=== PATIENT | male | born 1970 | race Caucasian/White ===

== ENCOUNTER 2025-06-03 07:43 | Emergency (ER) | payer BC ==
[2025-06-03] MEDS: Ondansetron 4 MG/2 ML SDV IVPUSH ONE (08:05)
[2025-06-03] MEDS: Sodium Chloride 0.9% 10 ML Syringe FLUSH PRN (08:10)
[2025-06-03] MEDS: Ondansetron 4 MG/2 ML SDV ONE (08:12)
[2025-06-03 08:16] LABS: BASOPHILS ABSOLUTE AUTO 0.1 K/mm3 (0.0-0.2); BASOPHILS PERCENT AUTO 1.0 % (0.0-1.0); EOSINOPHILS ABSOLUTE AUTO 0.2 K/mm3 (0.0-0.4); EOSINOPHILS PERCENT AUTO 2.2 % (0.0-6.0); IMMATURE GRAN ABSOLUTE AUTO 0.07 K/mm3 (0.00-0.05); IMMATURE GRAN PERCENT AUTO 0.8 % (0.0-0.4); LYMPHOCYTES ABSOLUTE AUTO 1.2 K/mm3 (1.0-4.8); LYMPHOCYTES PERCENT AUTO 13.3 % (24.0-44.0); MEAN PLATELET VOLUME 9.3 fl (9.4-12.4); MONOCYTES ABSOLUTE AUTO 0.7 K/mm3 (0.0-0.8); MONOCYTES PERCENT AUTO 7.3 % (0.0-8.0); NEUTROPHILS ABSOLUTE AUTO 6.9 K/mm3 (1.8-7.7); NEUTROPHILS PERCENT AUTO 75.4 % (41.0-71.0); NRBC ABSOLUTE 0.00 (0.00-0.02); NRBC PERCENT 0.0 % (0.0-0.2); PLATELET COUNT,PLT 238 K/mm3 (150-400); RED BLOOD CELL COUNT 5.51 M/mm3 (4.52-5.90); WHITE BLOOD CELL COUNT,WBC 9.08 K/mm3 (3.9-11.3)
[2025-06-03 08:41] LABS: LACTIC ACID 2.0 mmol/L (0.4-2.0)
[2025-06-03] MEDS: Iopamidol 755 Mg/ML 100 ML Bottle IVPUSH ONE (09:02)
[2025-06-03 09:04] LABS: A/G RATIO 1.1 (1-2); ALANINE AMINOTRANSFERASE,ALT 48.0 U/L (16-63); ASPARTATE AMNIOTRANSFERASE,AST 31.0 U/L (15-37); BILIRUBIN TOTAL 0.3 mg/dL (0.2-1.0); BLOOD UREA NITROGEN,BUN 18.0 mg/dL (7-18); CARBON DIOXIDE,CO2 28.0 mEq/L (21-32); CHLORIDE,CL 100.0 mEq/L (98-107); CREATINE KINASE,CK 467.0 U/L (39-308); CREATININE 1.5 mg/dL (0.7-1.3); EST CRCL DRUG DOSING (CG) 64.69 mL/min; ESTIMATED GFR 55.0 mL/min (>60); GLUCOSE RANDOM 149.0 mg/dL (70-99); POTASSIUM,K 3.9 mEq/L (3.5-5.1); PROTEIN TOTAL,TP 8.5 g/dl (6.4-8.2); SODIUM,NA 139.0 mEq/L (136-145); TROPONIN I HIGH SENSITIVITY 8.0 pg/mL (<=76)
[2025-06-03 09:06] LABS: ETHANOL BLOOD MEDICAL 0.0 gm% (0.00)
[2025-06-03 09:47] LABS: APPEARANCE,URINE CLEAR (Clear); GLUCOSE,URINE NEGATIVE (Negative); OCCULT BLOOD,URINE NEGATIVE (Negative)
[2025-06-03 09:54] LABS: BUPRENORPHINE SCREEN,URINE NEGATIVE (CUTOFF=10); METHADONE SCREEN, URINE NEGATIVE (CUT0FF=200); METHAMPHETAMINES SCREEN, URINE NEGATIVE (CUTOFF=500); OXYCODONE SCREEN,URINE NEGATIVE (CUT0FF=100); THC SCREEN,URINE 20 NG/ML NEGATIVE (CUTOFF=50)
[2025-06-03 09:57] LABS: AMPHETAMINES SCREEN, URINE NEGATIVE (CUTOFF=500)
[2025-06-03] MEDS ORDERED: Alum Hydrox/Mag Hydrox/Simeth 30 ML, Lidocaine 2% 15 ML PO ONE (13:13)
[2025-06-03] MEDS: Alum Hydrox/Mag Hydrox/Simeth 30 ML, Lidocaine 2% 15 ML PO ONE (13:20)
== END 2025-06-03 13:33 | disposition home or self-care (01) ==
LOC: JD.ED 07:43
DX: R10.13 Epigastric pain (principal); R11.2 Nausea with vomiting, unspecified; M54.9 Dorsalgia, unspecified; Z79.890 Hormone replacement therapy; Z79.899 Other long term (current) drug therapy
CPT/HCPCS: 36415; 71275; 74177; 80053; 80306; 80307; 81003; 82550; 83605; 83690; 83735; 84484; 85025; 87040; 93005; 96361; 96374; 96375; 99284; A9270; J1171; J2270; J2405; J3490; J7030; Q9967; 93010

== ENCOUNTER 2025-08-25 08:23 | Emergency (ER) | payer BC ==
[2025-08-25] MEDS: fentaNYL 100 MCG/2 ML SDV IVPUSH ONE (10:26)
[2025-08-25] MEDS ORDERED: Ketorolac 30 MG/ML SDV IVPUSH ONE (11:54)
[2025-08-25] MEDS: Ketorolac 15 MG/ML SDV IVPUSH ONE (12:15)
== END 2025-08-25 15:11 | disposition home or self-care (01) ==
LOC: JD.ED 08:23
DX: S43.401A Unspecified sprain of right shoulder joint, initial encounter (principal); E03.9 Hypothyroidism, unspecified; Z79.899 Other long term (current) drug therapy; Z79.890 Hormone replacement therapy; W18.30XA Fall on same level, unspecified, initial encounter; Y93.01 Activity, walking, marching and hiking
CPT/HCPCS: 73030; 96374; 96375; 99283; J1885; J3010